=== PATIENT | male | born 1940 | race Caucasian/White ===

== ENCOUNTER → 2016-06-28 | Outpatient (CLI) | payer MEDICARE | LOC: EMI 10:56 | DX: M54.12 Radiculopathy, cervical region (principal); M50.11 Cervical disc disorder with radiculopathy, high cervical region; M47.812 Spondylosis without myelopathy or radiculopathy, cervical region | CPT/HCPCS: 72141 ==

== ENCOUNTER 2020-06-04 17:17 | Emergency (ER) | payer MEDICARE ==
[~2020-06-04 17:17] MED LIST: ADULT LOW DOSE81 MG PO; ALDACTONE 25MG25 MG PO; ATORVASTATIN CA20 MG PO; BETHANECHOL CHL25 MG PO; CEFUROXIME500 MG PO; DIFLUCAN150 MG PO; DILTIAZEM 24HR120 M1 PO; FINASTERIDE5 MG PO; FLOMAX 0.4 MG0.4 MG PO; GLUCOTROL 10 MG10 MG PO; KEFLEX CAP 500500 MG PO; LOPRESSOR 50 MG50 MG PO; VANCOMYCIN HCL125 MG PO; VITAMIN D 40400 UNIT PO; ZYLOPRIM 300 M300 MG PO
[2020-06-04 18:11] LABS: RED BLOOD COUNT 2.03 M/UL (4.20-5.50); WHITE BLOOD COUNT 5.6 K/UL (4.5-11.0)
[2020-06-04 18:17] LABS: HEMOGLOBIN 6.1 gm/dl (14.0-17.5)
[2020-06-04 18:29] LABS: BUN/CREATININE RATIO 27 (0-10)
[2020-06-04 23:26] LABS: WHITE BLOOD COUNT 4.3 K/UL (4.5-11.0)
[2020-06-04 23:29] LABS: HEMOGLOBIN 6.9 gm/dl (14.0-17.5); RED BLOOD COUNT 2.29 M/UL (4.20-5.50)
[2020-06-05 03:34] LABS: HEMOGLOBIN 7.9 gm/dl (14.0-17.5); WHITE BLOOD COUNT 4.3 K/UL (4.5-11.0)
[2020-06-05 03:35] LABS: RED BLOOD COUNT 2.65 M/UL (4.20-5.50)
== END 2020-06-05 04:25 | disposition home or self-care (01) ==
LOC: ER1 17:17
PROVIDERS: Family Medicine; Student in an Organized Health Care Education/Training Program
DX: D64.9 Anemia, unspecified (principal); R53.1 Weakness
CPT/HCPCS: 36415; 36430; 80053; 81001; 82550; 82553; 83874; 84484; 85025; 85027; 85610; 85730; 86850; 86900; 86901; 86920; 99285; P9016

== ENCOUNTER 2020-06-11 14:02 | Emergency (ER) | payer MEDICARE ==
[2020-06-11 16:15] LABS: RED BLOOD COUNT 2.35 M/UL (4.20-5.50); WHITE BLOOD COUNT 2.9 K/UL (4.5-11.0)
[2020-06-11] MEDS ORDERED: AZITHROMYCIN500 MG PO (18:06)
== END 2020-06-11 20:55 | disposition home or self-care (01) ==
LOC: ER1 14:02
PROVIDERS: Emergency Medicine
DX: I12.9 Hypertensive chronic kidney disease with stage 1 through stage 4 chronic kidney disease, or unspecified chronic kidney disease (principal); N18.9 Chronic kidney disease, unspecified; Z20.822 Contact with and (suspected) exposure to COVID-19; E11.22 Type 2 diabetes mellitus with diabetic chronic kidney disease; D63.1 Anemia in chronic kidney disease; J18.9 Pneumonia, unspecified organism; Z86.73 Personal history of transient ischemic attack (TIA), and cerebral infarction without residual deficits
CPT/HCPCS: 0240U; 36415; 36430; 71045; 80053; 85025; 85610; 85730; 86850; 86900; 86901; 86920; 93005; 99285; G0463; P9016

== ENCOUNTER 2020-11-03 14:16 | Inpatient (IN) | payer MEDICARE ==
[~2020-11-03] VITALS: Ht 182.9 cm; Wt 76.9 kg
[~2020-11-03 14:16] MED LIST changes: +AZITHROMYCIN500 MG PO
[2020-11-03 16:32] LABS: RED BLOOD COUNT 3.12 M/UL (4.20-5.50); WHITE BLOOD COUNT 22.2 K/UL (4.5-11.0)
[2020-11-04 07:56] LABS: RED BLOOD COUNT 2.43 M/UL (4.20-5.50); WHITE BLOOD COUNT 11.9 K/UL (4.5-11.0)
[2020-11-05 04:32] LABS: HEMOGLOBIN 7.4 gm/dl (14.0-17.5); RED BLOOD COUNT 2.46 M/UL (4.20-5.50); WHITE BLOOD COUNT 9.3 K/UL (4.5-11.0)
[2020-11-06 07:28] LABS: RED BLOOD COUNT 2.74 M/UL (4.20-5.50)
[2020-11-07 03:29] LABS: HEMOGLOBIN 7.4 gm/dl (14.0-17.5); RED BLOOD COUNT 2.54 M/UL (4.20-5.50)
[2020-11-07 03:32] LABS: WHITE BLOOD COUNT 5.2 K/UL (4.5-11.0)
[2020-11-08 02:59] LABS: HEMOGLOBIN 7.2 gm/dl (14.0-17.5); RED BLOOD COUNT 2.48 M/UL (4.20-5.50); WHITE BLOOD COUNT 5.9 K/UL (4.5-11.0)
[2020-11-09 02:33] LABS: WHITE BLOOD COUNT 5.3 K/UL (4.5-11.0)
[2020-11-09 02:44] LABS: RED BLOOD COUNT 2.78 M/UL (4.20-5.50)
[2020-11-10 03:15] LABS: HEMOGLOBIN 7.6 gm/dl (14.0-17.5); RED BLOOD COUNT 2.66 M/UL (4.20-5.50); WHITE BLOOD COUNT 4.2 K/UL (4.5-11.0)
[2020-11-12 09:00] LABS: HEMOGLOBIN 7.1 gm/dl (14.0-17.5); RED BLOOD COUNT 2.5 M/UL (4.20-5.50); WHITE BLOOD COUNT 3.2 K/UL (4.5-11.0)
[2020-11-13 03:33] LABS: HEMOGLOBIN 7.1 gm/dl (14.0-17.5); RED BLOOD COUNT 2.56 M/UL (4.20-5.50); WHITE BLOOD COUNT 3.8 K/UL (4.5-11.0)
[2020-11-14 04:32] LABS: RED BLOOD COUNT 2.46 M/UL (4.20-5.50); WHITE BLOOD COUNT 3.8 K/UL (4.5-11.0)
[2020-11-14 04:37] LABS: HEMOGLOBIN 6.9 gm/dl (14.0-17.5)
[2020-11-15 03:22] LABS: HEMOGLOBIN 7.9 gm/dl (14.0-17.5); WHITE BLOOD COUNT 3.5 K/UL (4.5-11.0)
[2020-11-15 03:23] LABS: RED BLOOD COUNT 2.75 M/UL (4.20-5.50)
[2020-11-16 03:04] LABS: HEMOGLOBIN 7.6 gm/dl (14.0-17.5); RED BLOOD COUNT 2.62 M/UL (4.20-5.50)
== END 2020-11-16 13:51 | DRG 177 ==
LOC: ER1 14:16 → PROG CARE 18:00 → CDU 18:00 → PROG CARE 11-04 05:18
PROVIDERS: Internal Medicine; Internal Medicine Nephrology; Physician Assistant; Registered Nurse; ADMIT Internal Medicine
PROC: 30233N1 Transfusion of Nonautologous Red Blood Cells into Peripheral Vein, Percutaneous Approach (ICD-10-PCS; principal; 2020-11-08)
PROC: 3E0333Z Introduction of Anti-inflammatory into Peripheral Vein, Percutaneous Approach (ICD-10-PCS; 2020-11-11)
DX: U07.1 COVID-19 (principal); J12.82 Pneumonia due to coronavirus disease 2019; N17.0 Acute kidney failure with tubular necrosis; E87.4 Mixed disorder of acid-base balance; D61.818 Other pancytopenia; N30.00 Acute cystitis without hematuria; E87.1 Hypo-osmolality and hyponatremia; N39.0 Urinary tract infection, site not specified; E87.6 Hypokalemia; N40.0 Benign prostatic hyperplasia without lower urinary tract symptoms; I12.9 Hypertensive chronic kidney disease with stage 1 through stage 4 chronic kidney disease, or unspecified chronic kidney disease; I95.9 Hypotension, unspecified; E83.42 Hypomagnesemia; D63.8 Anemia in other chronic diseases classified elsewhere; D46.9 Myelodysplastic syndrome, unspecified; N18.30 Chronic kidney disease, stage 3 unspecified; E11.22 Type 2 diabetes mellitus with diabetic chronic kidney disease; E86.0 Dehydration; R53.81 Other malaise; Z86.73 Personal history of transient ischemic attack (TIA), and cerebral infarction without residual deficits; Z79.4 Long term (current) use of insulin; Z79.82 Long term (current) use of aspirin; Z83.3 Family history of diabetes mellitus
CPT/HCPCS: 36415; 36430; 71045; 80048; 80053; 80069; 81001; 82270; 82436; 82550; 82553; 82570; 82728; 82803; 82962; 83540; 83550; 83605; 83735; 83874; 84132; 84133; 84156; 84300; 84439; 84443; 84484; 84550; 85025; 86850; 86900; 86901; 86920; 87040; 87449; 89050; 93005; 96365; 96372; 96374; 96375; 97110-GP-CQ; 97116-GP-CQ; 97162; 97530-GP-CQ; 99285; A6212; C9113; J0885; J1442; J1750; J2405; J2543; J3475; J3480; J7030; J7050; J7070; P9016; P9047; Q5106; U0002

== ENCOUNTER 2021-03-12 12:54 | Inpatient (IN) | payer MEDICARE ==
[~2021-03-12] VITALS: Ht 182.9 cm; Wt 78.1 kg
[~2021-03-12 12:54] MED LIST changes: -GLUCOTROL 10 MG10 MG PO; +GLUCOTROL5 MG PO
[2021-03-12 14:01] LABS: HEMOGLOBIN 7.4 gm/dl (14.0-17.5); RED BLOOD COUNT 2.56 M/UL (4.20-5.50); WHITE BLOOD COUNT 5.5 K/UL (4.5-11.0)
[2021-03-13 03:12] LABS: BUN/CREATININE RATIO 34 (0-10)
[2021-03-13 04:58] LABS: RED BLOOD COUNT 1.84 M/UL (4.20-5.50); WHITE BLOOD COUNT 4.4 K/UL (4.5-11.0)
[2021-03-13 04:59] LABS: HEMOGLOBIN 5.2 gm/dl (14.0-17.5)
[2021-03-13 20:58] LABS: HEMOGLOBIN 7.3 gm/dl (14.0-17.5)
--- NOTE | 2021-03-13 21:12 | NUR ---
HGB RECHECK AFTER RECEIVING TWO UNITS OF PRBCS WAS 7.3. CALLED HOSPITALIST PRINTING PLATE SETTER WITH RESULTS. NO NEW ORDERS AT THIS TIME.
[2021-03-14 08:33] LABS: HEMOGLOBIN 7.9 gm/dl (14.0-17.5); WHITE BLOOD COUNT 3.6 K/UL (4.5-11.0)
[2021-03-14 08:42] LABS: RED BLOOD COUNT 2.84 M/UL (4.20-5.50)
[2021-03-15 00:52] LABS: ACINETOBACTER BAUMANNII Not Detected (Negative); CANDIDA ALBICANS Not Detected (Negative); CANDIDA KRUSEI Not Detected (Negative); CANDIDA TROPICALIS Not Detected (Negative); ENTEROCOCCUS Not Detected (Negative); ESCHERICHIA COLI Not Detected (Negative); HAEMOPHILUS INFLUENZAE Not Detected (Negative); KLEBSIELLA OXYTOCA Not Detected (Negative); KLEBSIELLA PNEUMONIAE Not Detected (Negative); KPC-CARBAPENEM-RESISTANCE GENE Not Detected (Negative); PROTEUS Not Detected (Negative); PSEUDOMONAS AERUGINOSA Not Detected (Negative); SERRATIA MARCESANS Not Detected (Negative); STAPHYLOCOCCUS AUREUS Not Detected (Negative); STREP AGALACTIAE (GROUP B) Not Detected (Negative); STREP PYOGENES (GROUP A) Not Detected (Negative); STREPTOCOCCUS Not Detected (Negative); mecA (METHICILLIN RESIST GENE Not Detected (Negative); vanA/B (VANCOMYCIN RESIST GENE Not Detected (Negative)
[2021-03-15 02:10] LABS: STAPHYLOCOCCUS DETECTED (Negative)
--- NOTE | 2021-03-15 04:35 | NUR ---
CALLED HOSPITALIST TO NOTIFY HIM OF BLOOD CULTURE RESULTS. RECEIVED NEW ORDER VIA TELEPHONE WITH READBACK TO CALL PHARMACY AND HAVE THEM DOSE VANCOMYCIN FOR THE PATIENT.
[2021-03-15 08:26] LABS: WHITE BLOOD COUNT 3.2 K/UL (4.5-11.0)
[2021-03-15 08:34] LABS: RED BLOOD COUNT 2.53 M/UL (4.20-5.50)
[2021-03-15 08:35] LABS: HEMOGLOBIN 6.9 gm/dl (14.0-17.5)
[2021-03-16 06:00] LABS: WHITE BLOOD COUNT 3.1 K/UL (4.5-11.0)
[2021-03-16 06:04] LABS: HEMOGLOBIN 8.9 gm/dl (14.0-17.5); RED BLOOD COUNT 3.16 M/UL (4.20-5.50)
[2021-03-17 09:27] LABS: HEMOGLOBIN 10.2 gm/dl (14.0-17.5); WHITE BLOOD COUNT 2.6 K/UL (4.5-11.0)
[2021-03-17 09:29] LABS: RED BLOOD COUNT 3.56 M/UL (4.20-5.50)
[2021-03-18 08:47] LABS: HEMOGLOBIN 8.8 gm/dl (14.0-17.5); WHITE BLOOD COUNT 2.4 K/UL (4.5-11.0)
[2021-03-18 08:50] LABS: RED BLOOD COUNT 3.16 M/UL (4.20-5.50)
[2021-03-19 06:31] LABS: HEMOGLOBIN 8.9 gm/dl (14.0-17.5); RED BLOOD COUNT 3.08 M/UL (4.20-5.50); WHITE BLOOD COUNT 1.9 K/UL (4.5-11.0)
[2021-03-20 06:34] LABS: HEMOGLOBIN 8.5 gm/dl (14.0-17.5); RED BLOOD COUNT 2.93 M/UL (4.20-5.50); WHITE BLOOD COUNT 1.9 K/UL (4.5-11.0)
[2021-03-21 06:44] LABS: HEMOGLOBIN 7.9 gm/dl (14.0-17.5); RED BLOOD COUNT 2.81 M/UL (4.20-5.50); WHITE BLOOD COUNT 1.8 K/UL (4.5-11.0)
--- NOTE | 2021-03-22 15:53 | NUR ---
patient using incentive spirometer when awake
[2021-03-23 07:01] LABS: RED BLOOD COUNT 2.78 M/UL (4.20-5.50); WHITE BLOOD COUNT 2.2 K/UL (4.5-11.0)
--- NOTE | 2021-03-24 02:57 | NUR ---
BEDSIDE TABLE AND WALKER MOVED INTO BATHROOM, BLINDS DOWN, CURTAIN PULLED PER CLERICAL COORDINATOR DUE TO TORNADO WATCH
[2021-03-25 07:38] LABS: HEMOGLOBIN 7.2 gm/dl (14.0-17.5); RED BLOOD COUNT 2.56 M/UL (4.20-5.50); WHITE BLOOD COUNT 2.1 K/UL (4.5-11.0)
[2021-03-26 07:12] LABS: RED BLOOD COUNT 2.41 M/UL (4.20-5.50); WHITE BLOOD COUNT 1.6 K/UL (4.5-11.0)
[2021-03-26 07:49] LABS: HEMOGLOBIN 6.9 gm/dl (14.0-17.5)
--- NOTE | 2021-03-26 15:18 | NUR ---
1430: PATIENTS PRBC COMPLETED,NS INFUSING, IV INFILTRATED, NS STOPPED AND IV REMOVED, WARM COMPRESS APPLIED TO SITE IN RIGHT UPPER ARM. BRUISED APPEARANCE NOTED AT THIS TIME.
[2021-03-27 07:48] LABS: RED BLOOD COUNT 2.37 M/UL (4.20-5.50)
[2021-03-27 07:51] LABS: HEMOGLOBIN 6.5 gm/dl (14.0-17.5); WHITE BLOOD COUNT 1.5 K/UL (4.5-11.0)
[2021-03-28 04:56] LABS: HEMOGLOBIN 7.6 gm/dl (14.0-17.5)
[2021-03-28 05:00] LABS: RED BLOOD COUNT 2.77 M/UL (4.20-5.50); WHITE BLOOD COUNT 1.4 K/UL (4.5-11.0)
--- NOTE | 2021-03-28 05:16 | NUR ---
CRITICAL LABS ON PT WBC 1.4, PLATELET 40 RECIEVED IN REPORT NOT TO CONTACT MD UNLESS PT HAS ACTIVE BLEED OR BELOW 20. PT LABS HAS INCREASE 23 TO 40. WILL NOTIFIY ONCOMING RN OF THESE LABS.
[2021-03-28 11:26] LABS: HEMOGLOBIN 8.4 gm/dl (14.0-17.5); RED BLOOD COUNT 2.91 M/UL (4.20-5.50); WHITE BLOOD COUNT 1.6 K/UL (4.5-11.0)
[2021-03-29 05:14] LABS: HEMOGLOBIN 7.6 gm/dl (14.0-17.5)
[2021-03-29 05:16] LABS: RED BLOOD COUNT 2.61 M/UL (4.20-5.50); WHITE BLOOD COUNT 1.2 K/UL (4.5-11.0)
--- NOTE | 2021-03-29 05:37 | NUR ---
CRITICAL LAB WBC1.2 AND PLATELETS 32. FROM PREVIOUS REPORT TO NOTIFY MD IF ACTIVE BLEED OR DROPS BELOW 20. WILL NOTIFIED ON COMING DAYSHIFT RN OF THESE RESULTS.
[2021-03-30 05:51] LABS: HEMOGLOBIN 7.4 gm/dl (14.0-17.5); RED BLOOD COUNT 2.56 M/UL (4.20-5.50)
[2021-03-30 06:20] LABS: WHITE BLOOD COUNT 1.2 K/UL (4.5-11.0)
[2021-03-31 08:22] LABS: RED BLOOD COUNT 2.54 M/UL (4.20-5.50)
[2021-03-31 08:29] LABS: WHITE BLOOD COUNT 1.1 K/UL (4.5-11.0)
[2021-04-01 07:14] LABS: HEMOGLOBIN 7.2 gm/dl (14.0-17.5); RED BLOOD COUNT 2.6 M/UL (4.20-5.50)
[2021-04-01 08:16] LABS: WHITE BLOOD COUNT 15.5 K/UL (4.5-11.0)
[2021-04-02 07:11] LABS: HEMOGLOBIN 7.4 gm/dl (14.0-17.5); RED BLOOD COUNT 2.55 M/UL (4.20-5.50)
[2021-04-02 07:21] LABS: WHITE BLOOD COUNT 22.1 K/UL (4.5-11.0)
[2021-04-03 08:00] LABS: HEMOGLOBIN 7.3 gm/dl (14.0-17.5); RED BLOOD COUNT 2.54 M/UL (4.20-5.50)
[2021-04-03 08:01] LABS: WHITE BLOOD COUNT 29.7 K/UL (4.5-11.0)
[2021-04-03 13:34] LABS: HEMOGLOBIN 7.4 gm/dl (14.0-17.5)
[2021-04-03 15:32] LABS: ADENOVIRUS F 40/41 Not Detected (Negative); ASTROVIRUS Not Detected (Negative); CAMPYLOBACTER Not Detected (Negative); CLOSTRIDIUM DIFFICILE TOX A/B Not Detected (Negative); CRYPTOSPORIDIUM Not Detected (Negative); E.COLI 0157 Not Detected (Negative); ENTAMOEBA HISTOLYTICA Not Detected (Negative); ENTEROAGGREGATIVE E.COLI (EAEC Not Detected (Negative); ENTEROPATHOGENIC E.COLI (EPEC) Not Detected (Negative); ENTEROTOXIGENIC E.COLI (ETEC) Not Detected (Negative); GIARDIA LAMBLIA Not Detected (Negative); NOROVIRUS GI/GII Not Detected (Negative); PLESIOMONAS SHIGELLOIDES Not Detected (Negative); ROTOVIRUS A Not Detected (Negative); SALMONELLA Not Detected (Negative); SAPOVIRUS Not Detected (Negative); SHIG/ENTEROINVAS.ECOLI (EIEC) Not Detected (Negative); SHIGA-LIK TOX.PRO.E.COLI (STEC Not Detected (Negative); VIBRIO Not Detected (Negative); VIBRIO CHOLERAE Not Detected (Negative); YERSINIA ENTEROCOLITICA Not Detected (Negative)
[2021-04-04 09:20] LABS: HEMOGLOBIN 7.9 gm/dl (14.0-17.5); RED BLOOD COUNT 2.77 M/UL (4.20-5.50)
[2021-04-04 09:27] LABS: WHITE BLOOD COUNT 13.3 K/UL (4.5-11.0)
[2021-04-04] MEDS ORDERED: IPRAT-ALBUT 0.5-3 ML NEB (16:52)
[2021-04-04] MEDS ORDERED: LEVOFLOXACIN750 MG PO (16:54)
[2021-04-04] MEDS ORDERED: RETACRIT10000 UNIT SC (16:54)
[2021-04-04] MEDS ORDERED: PROTONIX 40 MG40 M1 PO (17:04)
[2021-04-04] MEDS ORDERED: DEX4 GLUCOSE4 GM PO (17:04)
--- NOTE | 2021-04-04 18:27 | NUR ---
TRIED TO CALL REPORT TO HOME HEALTH UNSUCCESSFULLY. [facility] STATED THEY DID NOT HAVE HER INFORMATION.
== END 2021-04-04 18:35 | disposition home health service (06) | DRG 808 ==
LOC: ER1 12:54 → M/S 15:56 → CDU 15:56 → M/S 15:56
PROVIDERS: Emergency Medicine; Internal Medicine; Physician Assistant Medical; Registered Nurse; ADMIT Internal Medicine
PROC: 30233N1 Transfusion of Nonautologous Red Blood Cells into Peripheral Vein, Percutaneous Approach (ICD-10-PCS; principal; 2021-03-13)
PROC: B24BZZ4 Ultrasonography of Heart with Aorta, Transesophageal (ICD-10-PCS; 2021-03-13)
DX: D61.818 Other pancytopenia (principal); J18.9 Pneumonia, unspecified organism; I21.4 Non-ST elevation (NSTEMI) myocardial infarction; J96.01 Acute respiratory failure with hypoxia; N17.9 Acute kidney failure, unspecified; N39.0 Urinary tract infection, site not specified; E87.2 Acidosis; D46.9 Myelodysplastic syndrome, unspecified; D70.9 Neutropenia, unspecified; E88.09 Other disorders of plasma-protein metabolism, not elsewhere classified; I12.9 Hypertensive chronic kidney disease with stage 1 through stage 4 chronic kidney disease, or unspecified chronic kidney disease; R60.9 Edema, unspecified; Z20.822 Contact with and (suspected) exposure to COVID-19; N40.1 Benign prostatic hyperplasia with lower urinary tract symptoms; R53.81 Other malaise; E78.5 Hyperlipidemia, unspecified; N18.30 Chronic kidney disease, stage 3 unspecified; E11.22 Type 2 diabetes mellitus with diabetic chronic kidney disease; Z86.16 Personal history of COVID-19; Z86.73 Personal history of transient ischemic attack (TIA), and cerebral infarction without residual deficits; Z90.89 Acquired absence of other organs; Z79.899 Other long term (current) drug therapy
CPT/HCPCS: ECHO; 36415; 70450; 71045; 80048; 80053; 80307; 81001; 82272; 82550; 82553; 82728; 82962; 83540; 83550; 83605; 83735; 83874; 84484; 85014; 85018; 85025; 85027; 86850; 86900; 86901; 86920; 87040; 87077; 87086; 87150; 87186; 87449; 87507; 93005; 93306; 94640; 94664; 94760; 96374; 96375; 96376; 97110; 97110-GP-CQ; 97116; 97116-GP-CQ; 97161; 97166; 97530; 97530-GP-CQ; 99285; C9113; G0378; J0456; J0692; J0696; J1442; J3370; J3475; J7030; J7050; J7070; P9016; P9037; P9040; Q5106; U0002